=== PATIENT | male | born 1960 | race Caucasian/White ===

== ENCOUNTER → 2023-09-05 13:31 | Outpatient (REF) | payer MEDICARE, SELFPAY | LOC: RAD 13:31 | PROVIDERS: ATTENDING PHYSICIAN Family Medicine; REFERRING PHYSICIAN Specialist | DX: J18.9 Pneumonia, unspecified organism (principal) | CPT/HCPCS: 71046 ==

== ENCOUNTER → 2024-01-20 15:27 | Outpatient (REF) | payer MEDICARE, SELFPAY | LOC: PAVMRI 15:27 | PROVIDERS: ATTENDING PHYSICIAN Orthopaedic Surgery; FAMILY PHYSICIAN Family Medicine | DX: M25.552 Pain in left hip (principal) | CPT/HCPCS: 73721 ==

== ENCOUNTER → 2024-01-28 11:17 | Outpatient (REF) | payer MEDICARE, SELFPAY | LOC: HWRAD 11:17 | PROVIDERS: ATTENDING PHYSICIAN Nurse Practitioner Adult Health; FAMILY PHYSICIAN Family Medicine | DX: Z87.891 Personal history of nicotine dependence (principal) | CPT/HCPCS: 71271 ==

== ENCOUNTER → 2024-04-01 09:05 | Outpatient (REF) | payer MEDICARE, SELFPAY | LOC: PAVMRI 09:05 | PROVIDERS: ATTENDING PHYSICIAN Neurological Surgery; FAMILY PHYSICIAN Family Medicine | DX: M54.12 Radiculopathy, cervical region (principal) | CPT/HCPCS: 72141 ==

== ENCOUNTER 2024-07-08 06:03 | Day surgery (SDC) | payer MEDICARE, SELFPAY ==
[2024-06-11 10:41] LABS: Hematocrit 41.3 % (39.0-52.0); Hemoglobin 13.9 g/dL (13.0-18.0); Mean Corp Hgb Conc. 33.7 g/dL (33.0-37.0); Mean Corpuscular Hgb 30.8 pg (27.0-31.0); Mean Corpuscular Volume 91.6 fL (80.0-94.0); Mean Platelet Volume 9.3 fL (7.4-10.4); Platelet Count 176 10^3/uL (130-400); Red Blood Cell Count 4.51 10^6/uL (4.70-6.10); Red Cell Dist. Width 13.2 % (11.5-14.5); White Blood Cell Count 8.9 10^3/uL (4.8-10.8)
[2024-06-11 10:43] VITALS: BMI 22.9
[2024-06-11 11:03] LABS: ALT (SGPT) 23 U/L (0-50); AST (SGOT) 39 U/L (17-59); Albumin 4.4 g/dl (3.5-5.0); Alkaline Phosphatase 86 U/L (38-126); Blood Urea Nitrogen 43 mg/dl (9-20); Calcium 9.7 mg/dl (8.4-10.2); Carbon Dioxide 26 mmol/L (22-30); Chloride 102 mmol/L (98-107); Estimated Creatinine Clearance 53 ml/min; Glucose 132 mg/dl (70-99); Potassium 4.1 mmol/L (3.5-5.1); Sodium 140 mmol/L (135-145); Total Bilirubin 0.5 mg/dl (0.2-1.3); Total Protein 7.2 g/dl (6.3-8.2); eGFR 56.83
--- NOTE | 2024-06-11 14:05 | PTCARENOTE ---
Abn ECG, Etelvina at [facility] made aware, request ECG be addressed in pre operative clearance.
--- NOTE | 2024-06-24 14:53 | VNURNOTE ---
Called patient at home and cell phone numbers. No answer, left message. Referral placed in [facility]- scheduled SDS 07/08.
--- NOTE | 2024-06-29 12:06 | VNURNOTE ---
Rec'ed call back from patient. Patient is scheduled for an elective L THR on 07/08/24- he is a same day patient with Dr Sena. Spoke with patient prior to surgery. Introduced role of [facility] Liaison. Patient reports that he lives with his in a
MULTI story home.
There are 20 steps to enter. [place]
There is a bathroom on the first floor and patient has a recliner on first floor. He currently functions independently. He will find a raised toilet seat, and has a cane and rolling walker.
PCP is Dr Chauhan.
Discussed [facility] joint protocol and post surgical plans.
Reviewed that he will have VN services initially and will then start outpatient PT.
Patient selects [facility] for his home care needs and [facility]. Scheduled for 07/13.
Patient is in agreement with plan and states that his will be home with him. Advised to bring RW with him day of surgery. Referral accepted in [facility].
Plan: [facility] per [facility] joint protocol then outpt PT on 07/13
[2024-07-02 11:34] VITALS: BMI 22.9
[2024-07-08] VITALS (15 sets, daily range): BP systolic 102–133; BP diastolic 74–100; PULSE 65; O2SAT 98
[2024-07-08] MEDS: TYLENOL 650 MG PO (06:20)
[2024-07-08] MEDS: NORMOSOL-R/PLASMALYTE-A 1000 IV (06:40)
--- NOTE | 2024-07-08 07:14 | W.DS.TRANS ---
DC Summary - Product Development Engineer
-
Discharge Instructions:
Sleep Apnea Risk Intermediate
Discharge Diagnosis/Procedures Nathen [address]ING[address] Dr 07/08/24
Diet As tolerated
Activity With Walker
Additional Activity frequent ambulation and utilize venous
compression device SCD when sitting for
prolonged perioids and sleeping
Driving Restrictions No driving
Bathing Restrictions OK to Shower
Instructions:
Stand-Alone Forms: SDS Total Hip and Knee D/C
Changes to Home Medications: Yes
Discharge Medications:
DC Medications w/original date entered in [facility]
tacrolimus 1 mg capsule, immediate-release 1 mg PO BID 07/15/14
atorvastatin 10 mg tablet 10 mg PO QPM 07/02/24
buprenorphine 20 mcg/hour weekly transdermal patch 1 patch transdermal QWEEK 07/02/24
cholecalciferol (vitamin D3) 25 mcg (1,000 unit) capsule (Vitamin D3) 25 mcg PO DAILY 07/02/24
magnesium 250 mg tablet 250 mg PO DAILY 07/02/24
metoprolol succinate 50 mg tablet,extended release 24 hr (Toprol XL) 50 mg PO QPM 07/02/24
mycophenolate mofetil 250 mg capsule (CellCept) 250 mg PO BID 07/02/24
nifedipine 30 mg tablet,extended release 24 hr 30 mg PO QPM 07/02/24
pantoprazole 40 mg tablet,delayed release 40 mg PO DAILY 07/02/24
prednisone 5 mg tablet 5 mg PO DAILY 07/02/24
pregabalin 50 mg capsule (Lyrica) 50 mg PO DAILY 07/02/24
sodium bicarbonate 650 mg tablet 1,300 mg PO BID 07/02/24
docusate sodium 100 mg capsule (Colace) 100 mg PO BID stool softner #1 cap 07/08/24
hydrocodone 10 mg-acetaminophen 325 mg tablet 1 tab PO Q4H PRN moderate-severe pain #0 tabs 07/08/24
mupirocin 2 % topical ointment 1 applic topical BID infection prevention #1 tube 07/08/24
sennosides 8.6 mg tablet (Senokot) 17.2 mg (2 x 8.6 mg) PO BID laxative #2 tabs 07/08/24
warfarin 1 mg tablet 1 mg PO HS Blood clot prevention/tx #30 tabs 07/08/24
Home Medication Changes
warfarin 1 mg tablet 1 mg PO HS Blood clot prevention/tx #30 tabs 07/08/24
Pending Results: No
[2024-07-08] MEDS: SUBLIMAZE 50 MCG IV ×3 (08:11→08:38)
--- NOTE | 2024-07-08 08:50 | SUR.PHASEI ---
Dr. Angeles at bedside to help with pain management and 20mcq of Precedex given.
--- NOTE | 2024-07-08 09:10 | SUR.PHASEI ---
Dr. Angeles re-assessing pt. Will try Dilaudid for pain management. Another 20mcq of Precedex given by Dr. Angeles. Will continue to monitor pt closely
[2024-07-08] MEDS: DILAUDID 0.5 MG IV (09:12)
[2024-07-08] MEDS: DILAUDID 0.25 MG IV (09:36)
[2024-07-08] MEDS: ANCEF 5 IV (11:03)
== END 2024-07-08 12:05 | disposition home or self-care (01) ==
LOC: SDS 06:03
PROVIDERS: ATTENDING PHYSICIAN Orthopaedic Surgery; FAMILY PHYSICIAN Family Medicine; OTHER PHYSICIAN Internal Medicine Nephrology; REFERRING PHYSICIAN Specialist
PROC: 0SRB0JZ Replacement of Left Hip Joint with Synthetic Substitute, Open Approach (ICD-10-PCS; 2024-07-08)
DX: M16.12 Unilateral primary osteoarthritis, left hip (principal)
CPT/HCPCS: 27130; 36415; 73502; 80053; 83036; 85027; 87070; 93005; 97116; 97162; C1776

== ENCOUNTER → 2025-03-01 08:01 | Outpatient (REF) | payer MEDICARE, SELFPAY | LOC: EMG 08:01 | PROVIDERS: ATTENDING PHYSICIAN Nurse Practitioner Family; FAMILY PHYSICIAN Family Medicine | DX: R20.0 Anesthesia of skin (principal) | CPT/HCPCS: 95886; 95911 ==

== ENCOUNTER → 2025-03-12 08:41 | Outpatient (REF) | payer MEDICARE, SELFPAY | LOC: RAD 08:41 | PROVIDERS: ATTENDING PHYSICIAN Nurse Practitioner Family; FAMILY PHYSICIAN Family Medicine | DX: Z13.820 Encounter for screening for osteoporosis (principal); M85.89 Other specified disorders of bone density and structure, multiple sites; I77.82 Antineutrophilic cytoplasmic antibody [ANCA] vasculitis; M13.0 Polyarthritis, unspecified; Z79.52 Long term (current) use of systemic steroids | CPT/HCPCS: 77080 ==

== ENCOUNTER 2025-05-25 13:39 | Emergency (ER) | payer MEDICARE, SELFPAY ==
[2025-05-25 13:50] VITALS: BP 151/97
--- NOTE | 2025-05-25 15:36 | ED.MUSCINJ ---
HPI-Injury
<Rob Moss MD, Resident - Last Filed: 05/25/25 16:05>
General
Chief Complaint: Musculo-Skeletal Complaint
Source: patient
Time Seen by Provider: 05/25/25 15:21
History of Present Illness-Injury
Initial Injury comments:
Patient is a 64-year-old male with PMH of ESRD s/p transplant x 2, HTN, HLD, and vasculitis who presented to the [place] ED after striking his elbow due to a fall. Patient tripped while playing outside with his granddaughter, which caused him to
fall and strike his elbow on a rock. Patient experienced immediate 9/10 intensity pain, without associated weakness or numbness. No LOC. Did not strike his head. No injury to other body parts. No blood thinners. Right elbow ROM intact, though
flexion is limited due to pain beyond 90 degrees.
Past History
<Rob Moss MD, Resident - Last Filed: 05/25/25 16:05>
Past History
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
ED Past Surgical History: Orthopedic (Right total hip replacement) and Other (Kidney transplant �2 2007 and again 2011.)
Social History
Tobacco: Non-smoker
Alcohol: None
Personal:
Living: with family
Employment: Employed ([employer])
Family History
Family History: Other (Noncontributory)
Review of Systems
<Rob Moss MD, Resident - Last Filed: 05/25/25 16:05>
Review of Systems
Musculoskeletal: Reports joint pain; Denies joint swelling, neck pain or back pain
Neurological: Reports other (Denies vision changes or slurred speech); Denies headache, weakness or numbness
Hematologic/Lymphatic: Reports bruising
Phy Exam
<Rob Moss MD, Resident - Last Filed: 05/25/25 16:05>
Physical Exam
Physical Exam:
General: NAD. Conversant.
MSK: Posterior R elbow mildly TTP. Full active and passive ROM, though flexion limited by pain to 90 degrees. No edema. Ecchymosis on posterior R elbow. Neurovascularly intact. No neck, wrist, or shoulder pain or reduced ROM.
Neuro: A&O x 3. Motor, sensory intact and equal in bilateral upper extremities. No focal deficits. EOMI. CN II through XII grossly intact.
CV: RRR. S1, S2 noted.
Pulm: CTAB. No wheezes or crackles.
Injury Course
<Rob Moss MD, Resident - Last Filed: 05/25/25 16:05>
Orders/Labs/Results
Orders:
Orders
05/25/25 13:40
Elbow, 3 View, Right [CR Elbow - Right Min 3 Views] Urgent
Comment:
Reason For Exam: fall
<Jaquan Alcantar, DO - Last Filed: 05/25/25 23:24>
Orders/Labs/Results
Orders:
Orders
05/25/25 13:40
Elbow, 3 View, Right [CR Elbow - Right Min 3 Views] Urgent
Comment:
Reason For Exam: fall
<Rob Moss MD, Resident - Last Filed: 05/25/25 16:05>
MDM/Problems Addressed
Differential Diagnosis Includes:
Contusion
Fracture
Dislocation
MDM/Problems Addressed:
Assessment: Patient is a 64-year-old male who presented to the [place] ED following mechanical fall that caused him to strike his right elbow on a rock. Patient denies mild R elbow pain at rest, with increased pain with R elbow flexion.
Neurovascularly intact. No swelling. Full active and passive range of motion, though flexion is limited by pain. Neck, shoulders, tenderness full ROM and no pain. R elbow x-ray shows no fractures, dislocations, effusion, or soft tissue edema.
Suspect R elbow contusion.
Plan:
#R elbow pain
Imaging: R elbow x-ray
Plan for discharge with OTC pain control as needed
<Rob Moss MD, Resident - Last Filed: 05/25/25 16:05>
*Pulse Oximetry
SaO2: 100
Oxygen Mode of Delivery: Room air
Patient hypoxic: no
*Critical Care Note
Total Time (30-74mins, 75-104mins- exclusive of procedures): Not Applicable
ED Attending Note
<Rob Moss MD, Resident - Last Filed: 05/25/25 16:05>
-
Portions of this chart may have been created with voice recognition software.� Occasional wrong word or��sound alike� substitutions may have occurred due to the inherent limitations of voice recognition software.
<Jaquan Alcantar, - Last Filed: 05/25/25 23:24>
ED Attending Note
Patient seen and examined by attending physician: Yes
I performed the substantive portion of visit, reviewed & personally made and approve the management plan that is documented in note by myself or BRIAN.: Yes
I performed a history and physical exam of patient and discussed management with resident, I reviewed resident's note and agree with documented findings and plan of care.: Yes
ED Attending Note:
64-year-old male presents to the ER for evaluation of pain in his right elbow after he fell landing directly on a rock. He denies head strike. He reports feeling otherwise well. He is not currently on any blood thinners. Vital signs reviewed,
patient is awake, alert, ambulating with a steady gait and no assistance, right elbow examination reveals diffuse ecchymosis and swelling along the dorsal aspect of the elbow, no limitation in active range of motion, intact sensation to light touch
distal upper arm, brisk cap refill present to the digits of the hand, GCS is 15. I reviewed radiology interpretation with the patient-no evidence of fracture. Patient also tells me that his primary care physician had called him to review test
result also. I discussed with patient supportive treatment of contusion along with anticipated normal healing course. He is declining any need for analgesia at the current time, will apply ice as needed. I discussed with patient temporary
immobilization or use of compression as needed for discomfort-he is declining these modalities as well. Patient was discharged in good condition.
Discharge Plan
Departure
Patient Disposition: Home (Routine Discharge)
Date of Disposition: 05/25/25
Time of Disposition: 15:59
Patient with high blood pressure during this ER visit?: Yes
Condition: Good
Covid-19: Not Applicable
Discharge Problem:
Elbow injury
Instructions: Contusion (DC), BLOOD PRESSURE
Prescriptions:
No Action
tacrolimus 1 MG capsule
1 mg PO BID
nifedipine 30 mg Tablet Extended Release 24hr
30 mg PO QPM
atorvastatin 10 mg Tablet
10 mg PO QPM
metoprolol succinate [Toprol XL] 50 mg Tablet Extended Release 24 Hr
50 mg PO QPM
mycophenolate mofetil [CellCept] 250 mg Capsule
250 mg PO BID
prednisone 5 mg Tablet
5 mg PO DAILY
sodium bicarbonate 650 mg Tablet
1,300 mg PO BID
pantoprazole 40 mg tablet,delayed release (DR/EC)
40 mg PO DAILY
magnesium 250 mg Tablet
250 mg PO DAILY
cholecalciferol (vitamin D3) [Vitamin D3] 25 mcg (1,000 unit) Capsule
25 mcg PO DAILY
pregabalin [Lyrica] 50 mg Capsule
50 mg PO DAILY
buprenorphine 20 mcg/hour Patch Weekly
1 patch TRANSDERMAL QWEEK
warfarin 1 mg tablet
1 mg PO HS Qty: 30 0RF
sennosides [Senokot] 8.6 mg tablet
17.2 mg PO BID Qty: 2 0RF
docusate sodium [Colace] 100 mg capsule
100 mg PO BID Qty: 1 0RF
hydrocodone-acetaminophen 10-325 mg Tablet
1 tab PO Q4H PRN (Reason: moderate-severe pain) Qty: 0 0RF
mupirocin 2 % ointment
1 applic topical BID Qty: 1 0RF
Referrals:
Juan F Chauhan MD [Family Provider, Family Practice]
Activity Restrictions/Additional Instructions:
Follow-up with PCP in the outpatient setting as needed
Return to ED if right upper extremity numbness, weakness, or increasing pain
Interventions
Interventions:
*Risk Screen - Suicide Last Done: 05/25/25 13:50
*General Assessment Last Done: 05/25/25 13:50
*Neglect/Abuse Screening Last Done: 05/25/25 13:50
*Nursing Disposition Last Done: 05/25/25 16:13
ED-Musculoskeletal Assessment Last Done: 05/25/25 16:12
Discharge Date and Time
Discharge Date/Time: 05/25/25 16:13
Print Language: MALAYSIAN
== END 2025-05-25 16:13 | disposition home or self-care (01) ==
LOC: EMR 13:39
PROVIDERS: EMERGENCY PHYSICIAN Emergency Medicine; FAMILY PHYSICIAN Family Medicine
DX: S59.909A Unspecified injury of unspecified elbow, initial encounter (principal); W22.09XA Striking against other stationary object, initial encounter; E78.00 Pure hypercholesterolemia, unspecified; I12.0 Hypertensive chronic kidney disease with stage 5 chronic kidney disease or end stage renal disease; N18.6 End stage renal disease; J44.9 Chronic obstructive pulmonary disease, unspecified; Z86.718 Personal history of other venous thrombosis and embolism; Z94.0 Kidney transplant status; Z96.641 Presence of right artificial hip joint
CPT/HCPCS: 99283; 73080

== ENCOUNTER → 2025-06-04 09:55 | Outpatient (REF) | payer MEDICARE, SELFPAY | LOC: PAVMRI 09:55 | PROVIDERS: ATTENDING PHYSICIAN Orthopaedic Surgery Hand Surgery; FAMILY PHYSICIAN Family Medicine | DX: M25.521 Pain in right elbow (principal) | CPT/HCPCS: 73221 ==

== ENCOUNTER 2025-06-08 06:17 | Day surgery (SDC) | payer MEDICARE, SELFPAY ==
[2025-06-07 11:42] LABS: ALT (SGPT) 32 U/L (0-50); AST (SGOT) 40 U/L (17-59); Albumin 4.2 g/dl (3.5-5.0); Alkaline Phosphatase 84 U/L (38-126); Blood Urea Nitrogen 39 mg/dl (9-20); Calcium 9.9 mg/dl (8.4-10.2); Carbon Dioxide 25 mmol/L (22-30); Chloride 102 mmol/L (98-107); Estimated Creatinine Clearance 48 ml/min; Glucose 117 mg/dl (70-99); Potassium 3.9 mmol/L (3.5-5.1); Sodium 133 mmol/L (135-145); Total Protein 7.3 g/dl (6.3-8.2); eGFR 56.48
[2025-06-07 14:07] VITALS: BMI 20.9
[2025-06-08] VITALS (7 sets, daily range): BP systolic 105–185; BP diastolic 64–103; BMI 20.9
[2025-06-08] MEDS: TYLENOL 1000 MG PO (10:29)
[2025-06-08] MEDS: NORMOSOL-R/PLASMALYTE-A 1000 IV (10:40)
[2025-06-08] MEDS: DILAUDID 0.5 MG IV (13:08)
== END 2025-06-08 14:20 | disposition home or self-care (01) ==
LOC: SDS 06:17
PROVIDERS: ATTENDING PHYSICIAN Orthopaedic Surgery Hand Surgery; FAMILY PHYSICIAN Family Medicine
DX: S46.311A Strain of muscle, fascia and tendon of triceps, right arm, initial encounter (principal); X58.XXXA Exposure to other specified factors, initial encounter
CPT/HCPCS: 24341; 36415; 80053; 93005; C1713